=== PATIENT | male | born 2005 | race Caucasian/White ===

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

== ENCOUNTER 2024-01-30 20:04 | Emergency (ER) | payer OTHER ==
[~2024-01-30] VITALS: Ht 180.3 cm; Wt 99.8 kg
[2024-01-30] MEDS ORDERED: ZOLOFT50 MG PO (20:20)
[2024-01-30] MEDS ORDERED: SODIUM CHLORIDE 0.9% 1,000 ML IV ONE (20:55)
[2024-01-30] MEDS ORDERED: Ondansetron Hydrochloride 4 MG/2 ML VIAL IV ONE (20:55)
[2024-01-30] MEDS ORDERED: Ketorolac Tromethamine 30 MG/ML VIAL IV ONE (21:00)
[2024-01-30] MEDS ORDERED: ACETAMINOPHEN 325 MG TAB PO ONE (21:00)
[2024-01-30 21:21] LABS: BASO # 0.1 10*3/uL (0.0-0.1); BASO % 0.3 % (0.0-1.0); EOS % 0.1 % (1.0-4.0); HEMATOCRIT 46.5 % (42.0-52.0); LYMPH # 0.9 10*3/uL (1.3-4.4); LYMPH % 5.7 % (27.0-41.0); MEAN CELL VOLUME 82.6 fl (80.0-94.0); MEAN CORPUSCULAR HGB 28.6 pg (27.0-31.0); MEAN CORPUSCULAR HGB CONC 34.6 g/dl (33.0-37.0); MEAN PLATELET VOLUME 8.5 fl (9.6-12.3); MONO # 1.2 10*3/uL (0.1-1.0); MONO % 8.1 % (3.0-9.0); NEUT % 85.5 % (47.0-73.0); PLATELET COUNT AUTOMATED 266 10*3/uL (130-400); RED BLOOD COUNT 5.63 10*6/uL (4.50-5.90); RED CELL DISTRI WIDTH 11.8 % (0-14.5); WHITE BLOOD COUNT 15.2 10*3/uL (4.8-10.8)
[2024-01-30 21:39] LABS: BILIRUBIN Negative (Negative); BLOOD Negative (Negative); CLARITY Clear (Clear); COLOR Dark Yellow (Yellow); GLUCOSE Negative (Negative); KETONE 2+ (Negative); LEUKO ESTERASE Negative (Negative); NITRITE Negative (Negative); PH 5.5 (4.5-8.0); SPECIFIC GRAVITY >= 1.030 (1.001-1.030)
[2024-01-30 21:45] LABS: ALKALINE PHOSPHATASE 75 U/L (46-116); BUN 10 mg/dl (9-23); CHLORIDE 104 mmol/L (98-107); LIPASE 29 U/L (12-53); POTASSIUM 3.6 mmol/L (3.4-5.1); SGPT/ALT 17 U/L (5-49); TOTAL PROTEIN 7.8 gm/dL (6.0-8.0)
[2024-01-30 21:46] LABS: HYALINE CAST 0-2; MUCOUS 2+; RBC 0-2 rbc/hpf (0-2); WBC 0-2 wbc/hpf (0-5)
[2024-01-30] MEDS ORDERED: Ondansetron4 MG PO (22:23)
== END 2024-01-30 22:38 | disposition home or self-care (01) ==
LOC: ED 20:04
PROVIDERS: Nurse Practitioner Family
DX: B34.9 Viral infection, unspecified (principal); Z20.822 Contact with and (suspected) exposure to COVID-19; E86.0 Dehydration; G43.909 Migraine, unspecified, not intractable, without status migrainosus; F41.9 Anxiety disorder, unspecified; F32.A Depression, unspecified; Z98.890 Other specified postprocedural states

== ENCOUNTER 2024-06-23 22:58 | Emergency (ER) | payer BC ==
[~2024-06-23] VITALS: Ht 177.8 cm; Wt 90.7 kg
[~2024-06-23 22:58] MED LIST changes: +Ondansetron4 MG PO; +ZOLOFT50 MG PO
[2024-06-23] MEDS ORDERED: Ondansetron Hydrochloride 4 MG/2 ML VIAL IV ONE (23:30)
[2024-06-23] MEDS ORDERED: SODIUM CHLORIDE 0.9% 1,000 ML IV ONE (23:30)
== END 2024-06-24 00:57 | disposition home or self-care (01) ==
LOC: ED 22:58
DX: Z79.899 Other long term (current) drug therapy (principal); R00.0 Tachycardia, unspecified; K52.9 Noninfective gastroenteritis and colitis, unspecified